=== PATIENT | female | born 1945 | race Caucasian/White ===

== ENCOUNTER → 2021-02-16 | Outpatient (CLI) | payer OTHER ==
[~2021-02-16] MED LIST: ALLEGRA ALLERG180 MG PO; AMITRIPTYLINE H25 M2; ASPIR 8181 MG PO; CELEXA20 MG PO; FOSAMAX 70 MG T70 M1; HYDROCODONE-AP1 EAC6 PO; INDAPAMIDE2.5 MG; IRON325 PO; KEFLEX250 MG PO; KLOR-CON 1010 MEQ PO; MAGNESIUM OXID400 MG PO; METAMUCIL PAC1 UDPKT PO; OMEPRAZOLE 20 M20 M1 PO; OMEPRAZOLE20 MG PO; PERCOCET 5-3251 EACH PO; POTASSIUM CHLORIDE; PROLIA60 MG/1 ML SQ; PROTONIX40 M1 PO; VITAMIN B-12500 MCG PO; VITAMIN D1000 UNI1 PO
== END ==
LOC: M.CT 11:00
PROVIDERS: ATTEND Family Medicine
DX: Z13.6 Encounter for screening for cardiovascular disorders (principal); I25.10 Atherosclerotic heart disease of native coronary artery without angina pectoris